=== PATIENT | male | born 2000 | race African-American/Black ===

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

== ENCOUNTER 2020-12-30 14:29 | Emergency (ER) | payer SELFPAY ==
[~2020-12-30] VITALS: Ht 172 cm; Wt 59.0 kg
--- NOTE | 2020-12-30 15:23 | ED Integumentary General ---
General Chief Complaint: Skin/Wound Problems Stated Complaint: L LEG WOUND Source: patient Exam Limitations: no limitations (ADRIÁN VILLA APRN) History of Present Illness Date Seen by Provider: Dec 30, 2020 Time Seen by Provider: 15:04 Initial Comments This is a 20 yo male who presented to the ER with c/o sore on the left side of his leg that started approximately a week ago as a small pimple. States that he scratched the area and tried to express fluid. However the past few days he has noted increased redness, swelling, drainage from the area. No fever, chills, nausea/vomiting, abdominal pain. (ADRIÁN VILLA APRN) Allergies and Home Medications Allergies Coded Allergies: No Known Drug Allergies (Unverified , 03/15/17) Home Medications Sulfamethoxazole/Trimethoprim 1 Each Tablet, 1 EACH PO BID Prescribed by: ADRIÁN VILLA on 12/30/20 1526 Patient Home Medication List Home Medication List Reviewed: Yes (ADRIÁN VILLA APRN) Review of Systems Review of Systems Constitutional: no symptoms reported EENTM: no symptoms reported Respiratory: no symptoms reported Cardiovascular: no symptoms reported Gastrointestinal: no symptoms reported Genitourinary: no symptoms reported Musculoskeletal: no symptoms reported Skin: see HPI Psychiatric/Neurological: No Symptoms Reported Endocrine: No Symptoms Reported Hematologic/Lymphatic: No Symptoms Reported (ADRIÁN VILLA APRN) Past Yjapblg-Hefvno-Swugro Hx Patient Social History Tobacco Use?: No Use of E-Cig and/or Vaping dev: Yes Substance use?: No Alcohol Use?: No Pt feels they are or have been: No (ADRIÁN VILLA APRN) Immunizations Up To Date Influenza Vaccine Up-to-Date: No; Not Current (ADRIÁN VILLA APRN) Past Medical History Surgeries: Yes Tonsillectomy Respiratory: No Cardiac: No Neurological: No Genitourinary: No Gastrointestinal: No Musculoskeletal: No Endocrine: No Cancer: No Psychosocial: No Integumentary: No (ADRIÁN VILLA APRN) Physical Exam Vital Signs Vital Signs - First Documented 12/30/20 12/30/20 15:05 16:15 Temp 36.6 Pulse 82 Resp 15 B/P (MAP) 109/67 (81) Pulse Ox 98 O2 Delivery Room Air (MONTSE ALANIS MD) Vital Signs Capillary Refill : (ADRIÁN VILLA SALON COORDINATOR) General Appearance: WD/WN, no apparent distress HEENT: normal ENT inspection, TMs normal Neck: full range of motion, normal inspection Cardiovascular: regular rate, rhythm, no edema Respiratory: lungs clear, normal breath sounds Back: normal inspection Neurologic/Psychiatric: no motor/sensory deficits, alert, normal mood/affect, oriented x 3 Skin: normal color, warm/dry Skin Problem Location: lower extremities (left lateral leg ) Skin Problem Character: drainage, erythema, swelling, warm ([id number] circluar area of erythema surrounding [id number] draining lesion) Lymphatic: no adenopathy (ADRIÁN VILLA APRN) Progress/Results/Core Measures Results/Orders Vital Signs/I&O 12/30/20 12/30/20 15:05 16:15 Temp 36.6 36.4 Pulse 82 78 Resp 15 12 B/P (MAP) 109/67 (81) 112/62 Pulse Ox 98 O2 Delivery Room Air (MONTSE ALANIS MD) Progress Progress Note : Progress Note Area was demarcated with skin pen. Cleansed with saline and chlorhexadine wash, applied mupirocin oint, and covered. Wound culture obtained. Given 1gm Rocephin in ED and Rx for Bactrim. Reviewed discharge POC and he is agreeable with plan. (ADRIÁN VILLA SALON COORDINATOR) Departure Impression Primary Impression: Cellulitis Disposition: 01 HOME, SELF-CARE Condition: Improved Departure-Patient Inst. Referrals: [facility] (PCP/Family) Primary Care Physician Patient Instructions: Wound Care (DC) Add. Discharge Instructions: Plan: 1. Wash area twice a day with mild soap and water, pat dry. Apply Mupirocin ointment twice a day and cover loosely. 2. Take antibiotics as directed and complete full course even if the area begins to improve. 3. Establish with primary care provider or [facility]. 4. May take Tylenol or Ibuprofen as needed for pain. 5. Return for any new, concerning, or worsening symptoms. Return if your redness begins to spread outside of the circled area despite taking antibiotics. All discharge instructions reviewed with patient and/or family. Voiced understanding. Scripts Sulfamethoxazole/Trimethoprim (Bactrim Ds Tablet) 1 Each Tablet 1 EACH PO BID for 10 Days, #20 TAB 0 Refills Prov: ADRIÁN VILLA SALON COORDINATOR 12/30/20 ATTENDING PHYSICIAN NOTE: I was physically present as attending physician in the emergency department during the care of this patient, but I was not directly involved in the decision making or delivery of care for this patient. (MONTSE ALANIS MD) ADRIÁN VILLA APRN Dec 30, 2020 15:23 MONTSE ALANIS MD Dec 31, 2020 14:49
[2020-12-30] MEDS ORDERED: SULF1TAB38 PO (15:26)
[2020-12-30] MEDS ORDERED: cefTRIAXone 1,000 MG VIAL IM ONE (15:30)
[2020-12-30] MEDS ORDERED: LIDOCAINE 1% INJ 20 ML 20 ML VIAL INJ ONE (15:30)
[2020-12-30] MEDS ORDERED: MUPIROCIN 2% OINT 22 GM (BACTROBAN) TUBE TOP SCH (15:45)
[2020-12-30 16:15] VITALS: BP 112/62
[2020-12-30] MEDS ORDERED: MUPIROCIN 2% OINT 22 GM (BACTROBAN) TUBE NSEACH SCH (21:00)
== END 2020-12-30 16:15 | disposition home or self-care (01) ==
LOC: EDUNIT# 14:29 → ER 14:31
DX: L03.116 Cellulitis of left lower limb (principal); F17.290 Nicotine dependence, other tobacco product, uncomplicated
CPT/HCPCS: 87070; 87077; 87186; 87205

== ENCOUNTER 2021-07-26 00:27 | Emergency (ER) | payer SELFPAY ==
[~2021-07-26 00:27] MED LIST: SULF1TAB38 PO
[2021-07-26 01:16] LABS: BASOPHILS # (AUTO) 0.1 10^3/uL (0.0-0.1); BASOPHILS % (AUTO) 1 % (0-10); EOSINOPHILS # (AUTO) 0.2 10^3/uL (0.0-0.3); EOSINOPHILS % (AUTO) 2 % (0-10); HEMATOCRIT 47 % (40-54); HEMOGLOBIN 16.4 g/dL (13.3-17.7); LYMPHOCYTES % (AUTO) 33 % (12-44); MEAN CORPUSCULAR HEMOGLOBIN 31 pg (25-34); MEAN CORPUSCULAR HGB CONC 35 g/dL (32-36); MEAN CORPUSCULAR VOLUME 87 fL (80-99); MEAN PLATELET VOLUME 8.9 fL (9.0-12.2); MONOCYTES # (AUTO) 0.8 10^3/uL (0.0-1.0); MONOCYTES % (AUTO) 6 % (0-12); NEUTROPHILS # (AUTO) 6.9 10^3/uL (1.8-7.8); NEUTROPHILS % (AUTO) 58 % (42-75); PLATELET COUNT 275 10^3/uL (130-400)
[2021-07-26 01:21] LABS: ALBUMIN 4.7 GM/DL (3.2-4.5); CHLORIDE 103 MMOL/L (98-107); POTASSIUM 3.8 MMOL/L (3.6-5.0); SODIUM 141 MMOL/L (135-145)
[2021-07-26 01:22] LABS: CALCIUM 9.6 MG/DL (8.5-10.1)
[2021-07-26 01:23] LABS: GLUCOSE 125 MG/DL (70-105); TOTAL PROTEIN 7.9 GM/DL (6.4-8.2)
[2021-07-26 01:25] LABS: BILIRUBIN,TOTAL 0.4 MG/DL (0.1-1.0); CARBON DIOXIDE 26 MMOL/L (21-32)
[2021-07-26 01:27] LABS: ALKALINE PHOSPHATASE 65 U/L (40-136); CREATININE SERUM 1.19 MG/DL (0.60-1.30); GFR ESTIMATED 89
[2021-07-26 01:28] LABS: BUN/CREATININE RATIO 13
[2021-07-26 01:30] LABS: ALANINE AMINOTRANSFERASE 22 U/L (0-55); MAGNESIUM 1.9 MG/DL (1.6-2.4)
[2021-07-26 01:31] LABS: CREATINE KINASE 156 U/L (30-200)
[2021-07-26 01:41] LABS: ACETAMINOPHEN < 10 UG/ML (10-30)
[2021-07-26 01:50] LABS: TSH (THYROID ANALYZER) 2.04 UIU/ML (0.35-4.94)
[2021-07-26] MEDS ORDERED: LACTATED RINGERS 1,000 ML IV ONE (02:00)
[2021-07-26 02:12] LABS: BILIRUBIN,URINE NEGATIVE (NEGATIVE); CLARITY,URINE CLEAR; COLOR,URINE YELLOW; GLUCOSE, URINE (UA) NEGATIVE (NEGATIVE); KETONES,URINE NEGATIVE (NEGATIVE); LEUKOCYTE ESTERASE ,URINE NEGATIVE (NEGATIVE); NITRITE,URINE NEGATIVE (NEGATIVE); PROTEIN,URINE 1+ (NEGATIVE)
[2021-07-26 02:32] LABS: AMPHETAMINE SCREEN, URINE NEGATIVE (NEGATIVE); BARBITURATE SCREEN URINE NEGATIVE (NEGATIVE); BENZODIAZEPINES SCREEN URINE NEGATIVE (NEGATIVE); CANNABINOID SCREEN, URINE POSITIVE (NEGATIVE); COCAINE SCREEN URINE NEGATIVE (NEGATIVE); METHADONE STAT NEGATIVE (NEGATIVE); METHAMPHETAMINE SCREEN URINE S NEGATIVE (NEGATIVE); OPIATE SCREEN URINE NEGATIVE (NEGATIVE); OXYCODONE STAT NEGATIVE (NEGATIVE); PROPOXYPHENE STAT NEGATIVE (NEGATIVE); TRICYCLIC ANTIDEPRESSANTS SCRE NEGATIVE (NEGATIVE)
[2021-07-26 02:38] LABS: BACTERIA,URINE NEGATIVE /HPF; SQUAMOUS EPITHELIAL CELL,UR RARE /HPF
--- NOTE | 2021-07-26 03:07 | ED Head Injury ---
General Chief Complaint: Neurological Problems Stated Complaint: REPORTS SEIZURE,FALL,HIT HEAD Nursing Triage Note: TO ED VIA POV AND AMBULATORY TO ROOM 6 WITH C/O FALL IN BATHROOM AND HIT HEAD ON CABINET. THINKS HAD SEIZURE. NO SEIZURE HX. FRIEND IN ROOM STATES, "HE POPPED RIGHT BACK UP AFTER HE FELL". Source: patient Allergies and Home Medications Allergies Coded Allergies: No Known Drug Allergies (Unverified , 03/15/17) Patient Home Medication List Sulfamethoxazole/Trimethoprim (Bactrim Ds Tablet) 1 Each Tablet, 1 EACH PO BID Prescribed by: ADRIÁN VILLA on 12/30/20 1526 Past Esjukrn-Rfvtbg-Axgrrp Hx Patient Social History Use of E-Cig and/or Vaping dev: Yes E-Cig or Vaping type used: Nicotine Use of E-Cig and/or Vaping Josh: Current Everyday User Substance use?: Yes Substance type: Marijuana Substance frequency: Daily Alcohol Use?: Yes Alcohol type: Hard Liquor Alcohol Frequency: Rarely Pt feels they are or have been: No Immunizations Up To Date Influenza Vaccine Up-to-Date: No; Not Current Past Medical History Surgeries: Yes Tonsillectomy Respiratory: No Cardiac: No Neurological: No Genitourinary: No Gastrointestinal: No Musculoskeletal: No Endocrine: No Cancer: No Psychosocial: No Integumentary: No Physical Exam Vital Signs Vital Signs - First Documented 07/26/21 00:40 Temp 36.3 Pulse 80 Resp 16 B/P (MAP) 142/104 (117) Pulse Ox 100 O2 Delivery Room Air Capillary Refill : Less Than 3 Seconds Height, Weight, BMI Height: 5'8.00" Weight: 125lbs. oz. [id number]; 19.00 BMI Method:Stated Progress/Results/Core Measures Results/Orders Lab Results Laboratory Tests Test 07/26/21 00:43 07/26/21 02:00 Range/Units White Blood Count 12.0 H 4.3-11.0 10^3/uL Red Blood Count 5.38 4.30-5.52 10^6/uL Hemoglobin 16.4 13.3-17.7 g/dL Hematocrit 47 40-54 % Mean Corpuscular Volume 87 80-99 fL Mean Corpuscular Hemoglobin 31 25-34 pg Mean Corpuscular Hemoglobin Concent 35 32-36 g/dL Red Cell Distribution Width 12.2 10.0-14.5 % Platelet Count 275 130-400 10^3/uL Mean Platelet Volume 8.9 L 9.0-12.2 fL Immature Granulocyte % (Auto) 0 % Neutrophils (%) (Auto) 58 42-75 % Lymphocytes (%) (Auto) 33 12-44 % Monocytes (%) (Auto) 6 0-12 % Eosinophils (%) (Auto) 2 0-10 % Basophils (%) (Auto) 1 0-10 % Neutrophils # (Auto) 6.9 1.8-7.8 10^3/uL Lymphocytes # (Auto) 4.0 1.0-4.0 10^3/uL Monocytes # (Auto) 0.8 0.0-1.0 10^3/uL Eosinophils # (Auto) 0.2 0.0-0.3 10^3/uL Basophils # (Auto) 0.1 0.0-0.1 10^3/uL Immature Granulocyte # (Auto) 0.0 0.0-0.1 10^3/uL Sodium Level 141 135-145 MMOL/L Potassium Level 3.8 3.6-5.0 MMOL/L Chloride Level 103 98-107 MMOL/L Carbon Dioxide Level 26 21-32 MMOL/L Anion Gap 12 5-14 MMOL/L Blood Urea Nitrogen 15 7-18 MG/DL Creatinine 1.19 0.60-1.30 MG/DL Estimat Glomerular Filtration Rate 89 BUN/Creatinine Ratio 13 Glucose Level 125 H 70-105 MG/DL Calcium Level 9.6 8.5-10.1 MG/DL Corrected Calcium 8.5-10.1 MG/DL Magnesium Level 1.9 1.6-2.4 MG/DL Total Bilirubin 0.4 0.1-1.0 MG/DL Aspartate Amino Transf (AST/SGOT) 20 5-34 U/L Alanine Aminotransferase (ALT/SGPT) 22 0-55 U/L Alkaline Phosphatase 65 40-136 U/L Total Creatine Kinase 156 30-200 U/L Myoglobin 66.9 10.0-92.0 NG/ML Total Protein 7.9 6.4-8.2 GM/DL Albumin 4.7 H 3.2-4.5 GM/DL TSH [place] Testing 2.04 0.35-4.94 UIU/ML Acetaminophen Level < 10 L 10-30 UG/ML Urine Color YELLOW Urine Clarity CLEAR Urine pH 7.0 5-9 Urine Specific [place] 1.020 1.016-1.022 Urine Protein 1+ H NEGATIVE Urine Glucose (UA) NEGATIVE NEGATIVE Urine Ketones NEGATIVE NEGATIVE Urine Nitrite NEGATIVE NEGATIVE Urine Bilirubin NEGATIVE NEGATIVE Urine Urobilinogen 0.2 < = 1.0 MG/DL Urine Leukocyte Esterase NEGATIVE NEGATIVE Urine RBC (Auto) NEGATIVE NEGATIVE Urine RBC NONE /HPF Urine WBC NONE /HPF Urine Squamous Epithelial Cells RARE /HPF Urine Crystals NONE /LPF Urine Bacteria NEGATIVE /HPF Urine Casts NONE /LPF Urine Mucus SMALL H /LPF Urine Culture Indicated NO Urine Opiates Screen NEGATIVE NEGATIVE Urine Oxycodone Screen NEGATIVE NEGATIVE Urine Methadone Screen NEGATIVE NEGATIVE Urine Propoxyphene Screen NEGATIVE NEGATIVE Urine Barbiturates Screen NEGATIVE NEGATIVE Ur Tricyclic Antidepressants Screen NEGATIVE NEGATIVE Urine Phencyclidine Screen NEGATIVE NEGATIVE Urine Amphetamines Screen NEGATIVE NEGATIVE Urine Methamphetamines Screen NEGATIVE NEGATIVE Urine Benzodiazepines Screen NEGATIVE NEGATIVE Urine Cocaine Screen NEGATIVE NEGATIVE Urine Cannabinoids Screen POSITIVE H NEGATIVE My Orders Orders - JAYMIE SIMMS DO Ed Iv/Invasive Line Start (07/26/21 00:48) Monitor-Rhythm Ecg Trace Only (07/26/21 00:48) Ct Head/Cervical Spine Wo (07/26/21 00:48) Acetaminophen (07/26/21 00:48) Cbc With Automated Diff (07/26/21 00:48) Comprehensive Metabolic Panel (07/26/21 00:48) Creatine Kinase (07/26/21 00:48) Drug Screen Stat (Urine) (07/26/21 00:48) Magnesium (07/26/21 00:48) Thyroid Analyzer (07/26/21 00:48) Ua Culture If Indicated (07/26/21 00:48) Myoglobin Serum (07/26/21 00:48) Ed Iv/Invasive Line Start (07/26/21 00:48) Ed Iv/Invasive Line Start (07/26/21 01:58) Lactated Ringers (Lr 1000 Ml Iv Solution (07/26/21 02:00) Medications Given in ED Current Medications Medications Dose Ordered Sig/Taniya Route Start Time Stop Time Status Last Admin Dose Admin Lactated Ringer's 1,000 ml @ 0 mls/hr Q0M ONCE IV 07/26/21 02:00 07/26/21 02:01 DC 07/26/21 02:08 999 MLS/HR Vital Signs/I&O 07/26/21 00:40 Temp 36.3 Pulse 80 Resp 16 B/P (MAP) 142/104 (117) Pulse Ox 100 O2 Delivery Room Air Blood Pressure Mean: 117 Departure Impression Primary Impression: Fall from standing Additional Impressions: Minor head injury without loss of consciousness Marijuana use Disposition: 01 HOME, SELF-CARE Condition: Stable Departure-Patient Inst. Decision time for Depature: 03:33 Referrals: [facility] (PCP/Family) Primary Care Physician Patient Instructions: Marijuana Use and Addiction (DC), Minor Head Injury, Adult ED Add. Discharge Instructions: LOTS OF CLEAR LIQUIDS--WATER, BROTH, JELLO, GATORADE TYLENOL AND MOTRIN NEEDED FOR PAIN NO DRUGS! NO ALCOHOL FOLLOW UP WITH [facility] NEEDED All discharge instructions reviewed with patient and/or family. Voiced understanding. JAYMIE SIMMS DO Jul 26, 2021 03:07
[2021-07-26 03:46] VITALS: BP 107/69
--- NOTE | 2021-07-26 06:29 | Diagnostic Imaging Report ---
PROCEDURE: CT head and CT cervical spine without contrast. TECHNIQUE: Multiple contiguous axial images were obtained through the brain and cervical spine without the use of intravenous contrast. Sagittal and coronal reformations through the cervical spine were then performed. Auto Exposure Controls were utilized during the CT exam to meet ALARA standards for radiation dose reduction. INDICATION: Fall, head and neck injury. COMPARISON: None. CT head: Ventricles are normal in size, shape and position. There is no midline shift or mass effect. There is no hemorrhage or evidence of acute ischemia. No extra axial fluid collection or mass is seen. There is no skull fracture. Paranasal sinuses and mastoids are clear. IMPRESSION: Negative CT head. CT cervical spine: Alignment is normal. There is no subluxation or fracture. No degeneration or osseous lesion is seen. Soft tissues are unremarkable. IMPRESSION: No traumatic malalignment or fracture. Dictated by: Dictated on workstation # [id number]
== END 2021-07-26 03:46 | disposition home or self-care (01) ==
LOC: EDUNIT# 00:27 → ER 00:32
DX: S09.90XA Unspecified injury of head, initial encounter (principal); F12.90 Cannabis use, unspecified, uncomplicated; F17.290 Nicotine dependence, other tobacco product, uncomplicated; W22.8XXA Striking against or struck by other objects, initial encounter
CPT/HCPCS: 70450; 72125; 80053; 80306; 81000; 82550; 83735; 83874; 84443; 85025; 93041; 99284; G0480; 36415; 80329